=== PATIENT | female | born 1970 | race Hispanic/Latino ===

== ENCOUNTER → 2022-01-09 | Outpatient (CLI) | payer MEDICARE | LOC: MAMMO 09:21 | PROVIDERS: ATTEND Internal Medicine | DX: Z12.31 Encounter for screening mammogram for malignant neoplasm of breast (principal); Z00.00 Encounter for general adult medical examination without abnormal findings; G47.33 Obstructive sleep apnea (adult) (pediatric) | CPT/HCPCS: 71046; 77067 ==

== ENCOUNTER → 2022-05-27 | Day surgery (SDC) | payer MEDICARE ==
[~2022-05-27] MED LIST: CARVEDILOL3.125 MG PO; COLLAGEN PLUS1 EACH; FAMOTIDINE20 MG PO; FUROSEMIDE40 MG PO; LIDOCAINE HCL 2% LOCAL INJ 5 ML SDV VIAL INJ ONE; MELOXICAM7.5 MG PO; METFORMIN HCL850 MG PO; METOCLOPRAMIDE HCL 10 MG/2ML VIAL ONE; NEURONTIN100 MG PO; ONDANSETRON HCL INJ 2MG/ML 2ML 2 MG/ML VIAL ONE; POVIDONE IODINE 0.05% 0.05 % ML PO ONE; PROPOFOL IV EMULSION 10 MG/ML 20 ML VIAL ONE; SIMVASTATIN20 MG PO; VENTOLIN HFA18 GM INH
[2022-05-27 13:05] VITALS: BP 131/79
== END | disposition home or self-care (01) ==
LOC: OR 09:48
PROVIDERS: ATTEND Internal Medicine Gastroenterology
DX: K21.9 Gastro-esophageal reflux disease without esophagitis (principal); K29.30 Chronic superficial gastritis without bleeding; G47.33 Obstructive sleep apnea (adult) (pediatric); I34.1 Nonrheumatic mitral (valve) prolapse; K76.0 Fatty (change of) liver, not elsewhere classified; E66.01 Morbid (severe) obesity due to excess calories; J45.909 Unspecified asthma, uncomplicated; E11.9 Type 2 diabetes mellitus without complications; I11.0 Hypertensive heart disease with heart failure; I50.9 Heart failure, unspecified; E78.00 Pure hypercholesterolemia, unspecified; Z88.8 Allergy status to other drugs, medicaments and biological substances; Z01.810 Encounter for preprocedural cardiovascular examination; Z79.84 Long term (current) use of oral hypoglycemic drugs; Z79.899 Other long term (current) drug therapy
CPT/HCPCS: 36415; 43239; 82948; 88305; 88342; 93005; J2001; J2405; J2704; J2765; 45378; 88312

== ENCOUNTER → 2022-07-04 | Outpatient (CLI) | payer MEDICARE ==
[~2022-07-04] MED LIST changes: -LIDOCAINE HCL 2% LOCAL INJ 5 ML SDV VIAL INJ ONE; -METOCLOPRAMIDE HCL 10 MG/2ML VIAL ONE; -ONDANSETRON HCL INJ 2MG/ML 2ML 2 MG/ML VIAL ONE; -POVIDONE IODINE 0.05% 0.05 % ML PO ONE; -PROPOFOL IV EMULSION 10 MG/ML 20 ML VIAL ONE
== END ==
LOC: RAD 11:19
PROVIDERS: ATTEND Internal Medicine Pulmonary Disease
DX: R06.02 Shortness of breath (principal)
CPT/HCPCS: 71046

== ENCOUNTER → 2022-07-04 | Outpatient (CLI) | payer MEDICARE | LOC: RAD 11:13 | PROVIDERS: ATTEND Internal Medicine | DX: M79.642 Pain in left hand (principal); M79.641 Pain in right hand; M25.532 Pain in left wrist; M25.531 Pain in right wrist; M17.0 Bilateral primary osteoarthritis of knee ==

== ENCOUNTER → 2022-08-13 | Outpatient (CLI) | payer MEDICARE | LOC: RAD 10:45 | PROVIDERS: ATTEND Internal Medicine | DX: M54.50 Low back pain, unspecified (principal); M79.672 Pain in left foot; M79.671 Pain in right foot | CPT/HCPCS: 72110 ==

== ENCOUNTER → 2023-04-03 | Outpatient (REF) | payer MEDICARE | LOC: RAD 10:36 | PROVIDERS: ATTEND Family Medicine | DX: M19.042 Primary osteoarthritis, left hand (principal); M19.041 Primary osteoarthritis, right hand ==